=== PATIENT | female | born 1990 | race Caucasian/White ===

== ENCOUNTER 2016-09-21 00:02 | Emergency (ER) | payer OTHER ==
[~2016-09-21] VITALS: Ht 170.2 cm; Wt 86.4 kg
[~2016-09-21 00:02] MED LIST: Ibuprofen PO; PREN-100 PO
[2016-09-21 00:10] VITALS: BP 105/72; PULSE 85; RESP 18; O2SAT 99
--- NOTE | 2016-09-21 00:59 | ED.REPORT ---
HPI-Chest Pain Under 40 Date of Service Sep 21, 2016 ED Provider: Yessenia Zafar MD This is a 26 year old female with a history of pleurisy who is 25 weeks and 5 days presenting to the emergency department complaining of chest pain that began 2 hours ago. Pt states she initially had L shoulder pain. She then woke up from sleep 2 hours ago with sharp, stabbing, and central chest pain. Pain has been constant and during onset it was associated with dizziness. Reports some shortness of breath secondary to pain. Denies LE swelling, nausea, vomiting, diaphoresis, cough, fever, or chills. Nursing Notes Stated Complaint: CHEST PAIN/TIGHTNESS/26 WEEKS Chief Complaint: Chest Pain Nursing Notes Reviewed: Yes Allergies: Coded Allergies: amoxicillin (Verified Allergy, Unknown, 09/21/16) iodine (Verified Allergy, Unknown, RASH, 09/21/16) penicillin G (Verified Allergy, Unknown, 09/21/16) pneumococcal vaccine (Verified Adverse Reaction, Intermediate, 09/21/16) Scheduled Vits #90/Iron Fum/FA ( Formula Tablet) 1 Each Tablet 1 EACH PO DAILY Scheduled PRN ([Ibuprofen]) 800 MG TABLET 800 MG PO Q6H PRN PRN For Pain General Time Seen by MD: 00:57 Chief Complaint Chest pain Hx Obtained From: Patient Arrived By: Walk-in Sudden in Onset?: Yes Onset Occurred: 1 - 4 hours ago Symptom Duration: Since onset Severity: Current: Mild Pertinent Negative: Pt denies other symptoms Recent Healthcare: No recent doctor visit, No recent hospitalization Similar Sx Previous: No Past Medical History Past Medical History Notes: OBGYN: Dr. Gilberto Gray Past Medical History 25 weeks and 5 days on 09/21/16 Syncope Prolonged QT Family History Diabetes Smoking History Unknown if Ever Smoker Social History Other Social History: Good social support Ambulatory Status Independent Review of Systems Constitutional: Denies: Chills, Fever Cardiovascular: Reports: Chest pain GI: Denies: Abdominal pain, Nausea, Vomiting Musculoskeletal: Denies: Back pain Neurologic: Denies: Headache Complete sys rev & neg: except as marked. Physical Exam Initial Vital Signs Vital Signs (First) Date Time Temp Pulse Resp B/P Pulse Ox O2 Delivery O2 Flow Rate FiO2 09/21/16 00:10 36.9 85 18 105/72 99 Room Air Initial VS: Reviewed Head / Eyes: Atraumatic, Normocephalic, PERRL ENT: Mucous membranes moist, Conjunctiva normal, No scleral icterus Neck: Supple, Non-tender, Full range of motion Extremities: Vascular intact, Neuro intact, No swelling, No tenderness Skin: Warm, Dry, No cyanosis Neurologic: Alert, Oriented, Nonfocal Psychiatric: Mood/affect normal, Behavior normal, Normal thought content General/Constitutional: Awake, Alert Respiratory / Chest: Breath sounds NL, Breath sounds = bilat, No respiratory distress, No rales, No rhonchi, No wheezing, No chest tenderness Cardiovascular: Heart rate NL, Regular rhythm, Heart sounds NL, No murmurs, Peripheral circulation NL, Pulses = bilaterally, No gross BP differential Abdomen: Soft, Non-tender, No guarding, No rebound, BS normoactive Gravid Interpretation & Diagnostics Lab Results Interpretation Result Diagram: 09/21/16 0139 09/21/16 0139 Test 09/21/16 00:45 09/21/16 01:39 Urine Color Yellow (YELLOW) Urine Appearance Clear (CLEAR,HAZY) Urine pH 6.5 (5.0-8.0) Urine Specific [place] 1.010 (1.003-1.035) Urine Protein Negativemg/dL (NEG,TRACE) Urine Glucose (UA) Negativemg/dL (NEGATIVE) Urine Ketones Negativemg/dL (NEGATIVE) Urine Occult Blood Negative (NEGATIVE) Urine Nitrite Negative (NEGATIVE) Urine Bilirubin Negative (NEGATIVE) Urine Urobilinogen 1.0mg/dL (NORMAL) Urine Leukocyte Esterase Negative (NEGATIVE) Urine RBC 0-2/hpf (0-2) Urine WBC 0-5/hpf (0-5) Urine Epithelial Cells Few/hpf (NONE-MOD) Urine Crystals 0 (NONE SEEN) Urine Bacteria Few/hpf (NONE-FEW) Urine Hyaline Casts None/lpf (NONE) Urine Granular Casts None seen (NONE SEEN) Urine Waxy Casts None seen (NONE SEEN) Urine Red Blood Cell Casts None seen (NONE SEEN) Urine White Blood Cell Casts None seen (NONE SEEN) Urine Mucus None seen (None Seen) Urine Trichomonas None seen (NONE SEEN) Urine Yeast None (NONE SEEN) Urinalysis Comment None Urine Culture Reflexed Not indicated Hold Urine Received (Received) White Blood Count 8.0th/mm3 (3.8-10.1) Red Blood Count 4.24mil/mm3 (3.90-5.20) Hemoglobin 12.6g/dL (12.0-15.6) Hematocrit 37.5% (35.0-46.0) Mean Corpuscular Volume 88.4fL (81-100) Mean Corpuscular Hemoglobin 29.7pg (27.0-35.0) Mean Corpuscular Hemoglobin Concent 33.6% (32.0-37.0) Red Cell Distribution Width 12.7% (12.3-15.4) Platelet Count 254bil/L (150-400) Neutrophils (%) (Auto) 62.3% (40-74) Lymphocytes (%) (Auto) 25.0% (14-46) Monocytes (%) (Auto) 10.4% (4-12) Eosinophils (%) (Auto) 1.4% (0-5) Basophils (%) (Auto) 0.4% (0-3) D-Dimer 0.8mg/L (<0.50) Sodium Level 138mEq/L (134-144) Potassium Level 4.1mEq/L (3.5-5.2) Chloride Level 102mEq/L (97-108) Carbon Dioxide Level 22mmol/L (18-29) Blood Urea Nitrogen 4mg/dL (6-20) Creatinine 0.36mg/dL (0.57-1.00) Estimat Glomerular Filtration Rate 307mL/min (>59) Glucose Level 83mg/dL (60-99) Calcium Level 8.7mg/dL (8.5-10.1) Magnesium Level 1.7mg/dL (1.6-2.6) Total Bilirubin 0.7mg/dL (0.0-1.2) Aspartate Amino Transf (AST/SGOT) 13U/L (0-50) Alanine Aminotransferase (ALT/SGPT) 10U/L (0-32) Alkaline Phosphatase 65U/L (25-150) Troponin T 0.010ug/L (0.0-0.011) Total Protein 7.2g/dL (6.4-8.4) Albumin 3.7g/dL (3.4-5.0) ECG Interpretation ECG Interpretation: NSR at rate of [address] elevation t-wave inversion in v1, v2, v3, v6 and lead 3 and AVR Small q wave in lead 3 Time: 01:00 CT Chest Interpretation Conclusion: No large or central pulmonary emboli identified. Nondiagnostic evaluation of the mid and distal branches due to technical factors, including suboptimal bolus. read by Dr Maria Esther Hung Study type: CT pulm angiogram Interpretation / Wet Read by: Interpret - Radiologist Re-Eval/Medical Decision Med Decision/Clinical Course 26-year-old female here approximately 25 weeks with chest pain. EKG shows T-wave inversions diffusely which could be physiologic. Other differential diagnoses include PE versus pleurisy versus pericarditis versus pneumonia. CT chest does not show pneumonia or PE. Patient does have a history of pleurisy, and at this time, I feel she most likely has pleurisy. Her EKG is not consistent with pericarditis. CBC, CMP, and troponin are all unremarkable, and urinalysis does not show evidence of UTI. Patient will follow up with her primary care physician this week along with [employer]. Prior to the patient's CT scan, I had a long discussion with her about the risks of CT to her , and utilizing group decision making, we have decided to perform a CT scan to rule out PE. Re-Evaluation/Progress : Time of Eval: 03:21 Re-Evaluation/Progress Note: Discussed lab results Counseled Regarding: Diagnosis, Lab results, Need for follow-up, When/why to return to ED Discharge & Departure Primary Impression: Chest pain Chest pain type: unspecified Qualified Code: R07.9 - Chest pain, unspecified Disposition: Home Discharge Condition All VS Reviewed: Yes Condition: Stable Patient Instructions: Chest Pain (ED) Additional Instructions: Thank you for seeking care at the emergency department today. Your lab and imaging studies were reassuring today. Follow-up with your primary care provider. Return to the emergency department for any new or worsening symptoms Referrals: Carolyn Verma (PCP) Scribe Attestation Portions of this note were transcribed by Hoang Robledo. I, Dr. Zafar personally performed the history, physical exam and medical decision-making; I reviewed and confirmed the accuracy of the information in the transcribed note. Signed by: emma Elizondo. 09/20/2016, 03:00. Yessenia Zafar MD Sep 21, 2016 00:59 HOANG ROBLEDO Sep 21, 2016 01:01
[2016-09-21] MEDS ORDERED: 0.9% Sodium Chloride 1,000 ML IV ONE (01:13)
[2016-09-21 01:52] LABS: BASOPHILS % (AUTO) 0.4 % (0-3); EOSINOPHILS % (AUTO) 1.4 % (0-5); MONOCYTES % (AUTO) 10.4 % (4-12); Mean Corpuscular Hemoglobin 29.7 pg (27.0-35.0); Mean Corpuscular Volume 88.4 fL (81-100); NEUTROPHILS % (AUTO) 62.3 % (40-74); Platelet Count 254 bil/L (150-400)
[2016-09-21 01:52] LABS: APPEARANCE,URINE CLEAR (CLEAR,HAZY); COLOR,URINE YELLOW (YELLOW); OCCULT BLOOD,URINE NEGATIVE (NEGATIVE); PH,URINE 6.5 (5.0-8.0)
[2016-09-21 02:16] LABS: TROPONIN T 0.01 ug/L (0.0-0.011)
[2016-09-21 02:26] LABS: Magnesium 1.7 mg/dL (1.6-2.6)
[2016-09-21 04:49] VITALS: BP 118/69; PULSE 72; RESP 14; O2SAT 98
--- NOTE | 2016-09-21 14:17 | DRSVH ---
PROCEDURE: CT ANGIO CHEST PULMONARY EMBOLISM ([id number]) INDICATIONS: possible PE TECHNIQUE: After the administration of intravenous contrast, 2 mm thick sections acquired from the pulmonary api jaxon to the posterior costophrenic angles. 3-dimensional maximum intensity projection (MIP) coronal a nd sagittal reformats were then acquired through the thorax. For radiation dose reduction, the follo wing was used: automated exposure control, adjustment of mA and/or kV according to patient size. COMPARISON: None. FINDINGS: Image quality: Suboptimal evaluation of pulmonary arteries distal to the main branches. Pulmonary arteries: Pulmonary arteries are normal in size, and demonstrate no intraluminal filling d efects to suggest central pulmonary embolism. Lungs and pleura: 5 mm right lower lobe nodule is present. No priors are available for comparison. No pleural effusions or pneumothorax. Central and peripheral airways are patent. Mediastinum: Heart size is normal, without pericardial effusion. No mediastinal or hilar adenopathy . Thoracic aorta is normal in caliber and enhancement. Esophagus is normal in caliber, without hiat al hernia. Bones and chest wall: No suspicious bony lesions. Ribs and thoracic spine appear intact throughout. Thyroid gland is unremarkable. No axillary or supraclavicular adenopathy. Abdomen: Visualized upper abdominal solid organs appear normal in the early arterial phase of enhanc ement. IMPRESSION: 1. No central pulmonary embolism. Distal branches are suboptimally visualized. Dictated by: Estrella Osorio M.D. on 09/21/2016 at 14:09 Approved by: Estrella Osorio M.D. on 09/21/2016 at 14:16
== END 2016-09-21 04:50 | disposition home or self-care (01) ==
LOC: SED 00:02
DX: O26.892 Other specified pregnancy related conditions, second trimester (principal); R07.9 Chest pain, unspecified; R42 Dizziness and giddiness; R06.02 Shortness of breath; O99.89 Other specified diseases and conditions complicating pregnancy, childbirth and the puerperium; M25.512 Pain in left shoulder; Z3A.25 25 weeks gestation of pregnancy; Z88.0 Allergy status to penicillin; Z88.1 Allergy status to other antibiotic agents; Z88.7 Allergy status to serum and vaccine; Z88.8 Allergy status to other drugs, medicaments and biological substances
CPT/HCPCS: 36415; 71275; 80053; 81000; 82948; 83735; 84484; 85025; 85379; 93005; 96361; 96374; 99285; J1200; J7030; Q9967

== ENCOUNTER 2016-12-25 18:36 | Inpatient (IN) | payer OTHER ==
[~2016-12-25] VITALS: Ht 172.7 cm; Wt 92.5 kg
[2016-12-25] MEDS ORDERED: Sodium Chloride LOK Flush 10 mL Syringe IVFLUSH PRN (19:20)
[2016-12-25] MEDS ORDERED: Hemorrhage Kit, Post Partum XX ONE (19:20)
[2016-12-25] MEDS ORDERED: Oxytocin 10 Unit/mL Inj IM PRN (19:20)
[2016-12-25] MEDS ORDERED: Carboprost 250 mCg/mL Inj IM PRN (19:20)
[2016-12-25] MEDS ORDERED: fentaNYL-PF 50 mCg/mL 2 mL Inj IVPUSH PRN (19:20)
[2016-12-25] MEDS ORDERED: Methylergonovine 0.2 mg/mL Inj IM PRN (19:20)
[2016-12-25] MEDS ORDERED: Oxytocin 30 Units/500 mL LR 30 UNITS in IV Premix 1 EACH IV PRN (19:20)
[2016-12-25] MEDS ORDERED: Lactated Ringer's 1,000 ML IV PRN (19:20)
[2016-12-25 20:19] LABS: Mean Corpuscular Hemoglobin 26.9 pg (27.0-35.0); Mean Corpuscular Volume 82.9 fL (81-100)
[2016-12-25] MEDS ORDERED: fentaNYL 2 mCg/mL-Bupivicaine 0.125% 100 mL Premix EPIDURAL ONE (22:11)
[2016-12-25] MEDS ORDERED: Lactated Ringer's 500 ML IV ONE (22:16)
[2016-12-25] MEDS: Lactated Ringer's 1,000 ML IV SCH (22:16)
--- NOTE | 2016-12-25 22:18 | PCM.HPANE ---
Patient Data Surgeon Admitting Provider:Gilberto Gray MD Attending Provider:Gilberto Gray MD Primary Care Physician:Carolyn Verma Other Provider: Reason for Visit Term Labor TERM LABOR Ht/WT & BMI Body Mass Index Allergies Coded Allergies: amoxicillin (Verified Allergy, Unknown, 09/21/16) iodine (Verified Allergy, Unknown, RASH, 09/21/16) penicillin G (Verified Allergy, Unknown, 09/21/16) pneumococcal vaccine (Verified Adverse Reaction, Intermediate, 09/21/16) Past Anesthesia History Anesthesia History: Denies:: Abnormal Airway, Anesthesia Reactions, Difficult Intubation, Fam Anesthesia Reaction, Fam Malignant Hypertherm, Malignant Hyperthermia Diabetes History Hx Diabetes?: No Medications Hypertension Medication: No Home Meds Incl Beta Leydi: No Active Scripts [Ibuprofen] (Motrin)800 MG TABLET No Conflict [id number] Mg PO Q6H PRN For Pain # 30 TABLET Ref 1 Prov:Gilberto Gray MD 04/06/14 Reported Medications Vits #90/Iron Fum/FA ( Formula Tablet)1 Each Tablet1 Each PO DAILY 04/05/14 History History of ENT Problems?: No HEENT History: Denies:: Abnormal Airway Cataracts Difficult Intubation Dysphagia Glaucoma Hearing Problem Sinus Problem TMJ Denture Type: None Teeth Condition: Within Normal Limits Hx of Heart Problems?: No Cardiovascular History: Denies:: AICD Abdominal Aortic Aneurism Atrial Fibrillation Cardiac Surgery Chest Pain Congestive Heart Failure Coronary Artery Disease Edema Heart Murmur Hypertension Irregular Heartbeat Pacemaker Peripheral Vascular Rheumatic Fever Thrombophlebitis Valvular Heart Disease Hx of Respiratory Problem?: No Respiratory History: Denies:: Asthma COPD Chest Surgery Cough Dyspnea Emphysema Hemoptysis Oxygen Administration Pneumonia Pulmonary Embolism Tuberculosis Use of C-PAP Machine Use of Inhalers / NEBS Hx Neurologic Problems?: No Hx of GI Problems?: No Hx of Problems?: No Female Hx: Positive for:: Currently Hx Musculoskeletal Problems?: No Hx of Psycho/Social Problems?: No Hx Surgeries?: Yes (D&C) Hx Any Other Health Problems?: No Hx Diabetes: No Hx Alcohol Use: NoHx Substance Use: No Smoking Status: Unknown if Ever Smoker Have You Smoked inLast 12 mo: No Stop/Bang Treated for Sleep Apnea?: No Do You Have a CPAP Machine?: No RUBY Risk Assessment: Low Risk, <3 Yes Risk Assessment Category Category 1A: Patient has history of documented sleep apnea, and HAS NOT received any narcotic, sedative or anesthesia administration during this stay. Category 1B: Patient has history of documented sleep apnea, and HAS received any narcotic , sedative or anesthesia administration during this stay Category 2: Patient has SUSPECTED Obstructive Sleep Apnea, and HAS received any narcotic , sedative or anesthesia administration during this stay. Category 3: Patient has SUSPECTED Obstructive Sleep Apnea and HAS NOT received narcotic, sedative or anesthesia administration during this stay. Category 4: Outpatient in Procedural Areas with known sleep apnea or who screen positive for High Risk via the STOP/BANG questionnaire. Exam Exam General Appearance: Oriented X3 HEENT/AIRWAY: MP 2 Lungs: Normal Air Movement Heart: Regular Rate/Rhythm Meds/Labs/Diagnostics Labs Test 12/25/16 19:00 White Blood Count 9.8th/mm3 (3.8-10.1) Red Blood Count 4.84mil/mm3 (3.90-5.20) Hemoglobin 13.0g/dL (12.0-15.6) Hematocrit 40.1% (35.0-46.0) Mean Corpuscular Volume 82.9fL (81-100) Mean Corpuscular Hemoglobin 26.9pg (27.0-35.0) Mean Corpuscular Hemoglobin Concent 32.4% (32.0-37.0) Red Cell Distribution Width 14.3% (12.3-15.4) Platelet Count 422bil/L (150-400) Plan Impression Patient chart reviewed, patient interviewed and anesthestic plan with risks, benefits, and alternatives discussed, and informed consent obtained. ASA Physical Status: ASA2 Mod Systemic Disease Anesthetic Plan: Epidural Bene/Risks/Altern/Consents: Yes HP Complete Prior to Induction: Yes Michael Ferrell MD December 25, 2016 22:18
[2016-12-25] MEDS ORDERED: Phenylephrine/NS-PF 100 mCg/mL 5 mL Syringe IVPUSH PRN (22:20)
[2016-12-25] MEDS ORDERED: EPHEDrine Sulfate 50 mg/mL Inj IVPUSH PRN (22:20)
[2016-12-25] MEDS ORDERED: fentaNYL 2 mCg/mL-Bupiv 0.125% 100 ML EPIDURAL SCH (22:20)
[2016-12-25] MEDS ORDERED: Atropine 1 mg/10 mL (Code) Syringe IVPUSH PRN (22:20)
[2016-12-25] MEDS ORDERED: Ondansetron 2 mg/mL 2 mL Inj IVPUSH PRN (22:20)
[2016-12-26] MEDS: Sodium Chloride LOK Flush 10 mL Syringe IVFLUSH SCH ×3 (00:30→16:30)
[2016-12-26] MEDS: Lactated Ringer's 1,000 ML IV SCH ×6 (02:01→22:16)
[2016-12-26] MEDS ORDERED: LANOlin HPA 7 Gm Ointment TOPICAL PRN (02:05)
[2016-12-26] MEDS ORDERED: Oxytocin 10 Unit/mL Inj IM PRN (02:05)
[2016-12-26] MEDS ORDERED: Carboprost 250 mCg/mL Inj IM PRN (02:05)
[2016-12-26] MEDS ORDERED: Oxytocin 30 Units/500 mL LR 30 UNITS in IV Premix 1 EACH IV PRN (02:05)
[2016-12-26] MEDS ORDERED: Methylergonovine 0.2 mg/mL Inj IM PRN (02:05)
[2016-12-26] MEDS ORDERED: Hemorrhage Kit, Post Partum XX ONE (02:05)
[2016-12-26] MEDS ORDERED: Benzocaine (Dermoplast) 20% 60 Gm Spray TOPICAL PRN (02:05)
--- NOTE | 2016-12-26 03:18 | PROCED ---
[address] [address] PROCEDURE NOTE PATIENT: SNEHA LAMB : 1990 MR#: [id number] ADMIT: 12/25/2016 JOB ID: [id number] DATE OF SERVICE: 12/26/2016 POSTOPERATIVE DIAGNOSIS(ES): PREOPERATIVE DIAGNOSIS(ES): SURGEON: Gilberto Gray MD DELIVERY SUMMARY: On December 26, 2016, at 1:43 a.m., this 26-year-old, female, at 39 weeks and 4 days estimated gestational age delivered a vigorous infant female by normal vaginal delivery with Apgars of 7 and 8. The patient presented having spontaneously ruptured her membranes on December 25, 2016, at roughly 5:30 p.m. She was kerri sporadically on arrival and was 3-4 cm dilated. Without the aid of any contractile agents, the patient progressed to 5 cm and desired an epidural. This epidural was effective. She continued to progress to complete by roughly 1 a.m. She started pushing around 1:15 a.m., and delivered across the midline 1st-degree perineal laceration at 1:43 a.m. The was delivered onto the patient, and delayed cord clamping was observed. The cord was then clamped and cut, and the cord blood was sent for analysis. Approximately 5 minutes later, the placenta delivered spontaneously and intact with a three-vessel cord. Uterine massage was performed and Pitocin was started at 350 cc/h. The patient's bleeding was normal at 200 cc of estimated blood loss. The patient's uterus was found to be firm, her cervix intact, her rectum intact, and there were no other complications of delivery. The counts were correct x2. The patient was in excellent condition following delivery.
[2016-12-26] MEDS: Witch Hazel-Glycerin Pads TOPICAL PRN (04:09)
[2016-12-26] MEDS: HYDROcodone-APAP 5-325 mg Tablet PO PRN ×5 (06:19→22:13)
[2016-12-27] MEDS: Sodium Chloride LOK Flush 10 mL Syringe IVFLUSH SCH ×2 (00:30→08:30)
[2016-12-27] MEDS: Lactated Ringer's 1,000 ML IV SCH ×2 (02:01→10:01)
[2016-12-27] MEDS: HYDROcodone-APAP 5-325 mg Tablet PO PRN ×2 (03:00→07:26)
[2016-12-27 07:58] VITALS: BP 98/54; PULSE 60; RESP 16
[2016-12-27 08:13] LABS: Mean Corpuscular Hemoglobin 26.8 pg (27.0-35.0); Mean Corpuscular Volume 82.2 fL (81-100)
--- NOTE | 2016-12-27 08:35 | PCM.DC.OB ---
Obstetrical Discharge Summary Date of Service December 27, 2016 Date of hospital admission December 25, 2016 at 18:39 Date of Discharge: December 27, 2016 Providers Admitting Physician: Gilberto Restrepo MD Primary Care Physician: Carolyn Verma Attending Physician: Gilberto Restrepo MD Problems: (1) Status post normal vaginal delivery Status: Acute ICD Code: [id number] Consultations None Invasive procedures NVD Date of Procedure: December 26, 2016 Hospital Course: Patient presented in labor and delivered without complication. Recovered well. ([Ibuprofen]) 800 MG TABLET 800 MG PO Q6H PRN PRN For Pain Prescribed by: GILBERTO RESTREPO MD Vits #90/Iron Fum/FA ( Formula Tablet) 1 Each Tablet 1 EACH PO DAILY (Reported) Follow-up plan See me in 4-8 weeks Discharge Diet: No restrictions Discharge Activity-General: Pelvic Rest for 6 weeks, Try not to overdue, Be up and about, Balance rest and activity, Activity as pain allows, Activity as energy allows, No lifting >15 pounds for 2 weeks Gilberto Restrepo MD December 27, 2016 08:35
--- NOTE | 2016-12-27 08:36 | PCM.DIOB ---
Obstetrical Disch Instruction Date of Service: December 27, 2016 Dates of Hospitalization Date of Hospital Admission December 25, 2016 at 18:39 Providers Admitting Physician: Gilberto Gray MD Primary Care Physician: Carolyn Verma Attending Physician: Gilberto Gray MD Discharge Diagnosis Problems: (1) Status post normal vaginal delivery Status: Acute ICD Code: [id number] Diet Discharge Diet: No restrictions Activity Discharge Activity-General: Pelvic Rest for 6 weeks, Try not to overdue, Be up and about, Balance rest and activity, Activity as pain allows, Activity as energy allows, No lifting >15 pounds for 2 weeks Dressing and Incisional Care Hygiene: May shower, Perineal care, Sitz bath, Dermoplast spray, Witch Talia pads Follow Up Plan Follow-up Provider (F9): Gilberto Gray MD Follow-up appointment: Weeks (8) Call your provider for: Fever or Chills, Heavy vaginal bleeding, Excessive constipation, Vaginal discomfort, Red painful breasts Gilberto Gray MD December 27, 2016 08:36
[2016-12-27] MEDS ORDERED: IBUP800T28 PO (08:37)
[2016-12-27] MEDS ORDERED: DOCU-41 PO (08:37)
[2016-12-27] MEDS ORDERED: HYDR-4003 PO (08:37)
[2016-12-27] MEDS: Witch Hazel-Glycerin Pads TOPICAL PRN (11:10)
== END 2016-12-27 12:58 | disposition home or self-care (01) | DRG 775 ==
LOC: FBCO 18:36 → FBC 18:39
PROVIDERS: ADMIT Family Medicine; ATTEND Family Medicine
PROC: 10E0XZZ Delivery of Products of Conception, External Approach (ICD-10-PCS; principal; 2016-12-26)
DX: O80 Encounter for full-term uncomplicated delivery (principal); Z3A.39 39 weeks gestation of pregnancy; Z37.0 Single live birth